=== PATIENT | female | born 1950 | race Two or more races ===

== ENCOUNTER 2019-04-22 15:52 | Inpatient (IN) | payer MEDICARE, OTHER ==
[~2019-04-22] VITALS: Ht 149.9 cm; Wt 57.6 kg
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
[2019-04-22] MEDS ORDERED: ACETAMINOPHEN 325 MG TABLET ONE (16:24)
[2019-04-22] MEDS ORDERED: ACETAMINOPHEN 325 MG TABLET PO ONE (16:30)
--- NOTE | 2019-04-22 16:39 | NUR ---
PT TAKEN TO CT
--- NOTE | 2019-04-22 17:06 | NUR ---
RACHAEL REGLA #[id number] AT BEDSIDE
--- NOTE | 2019-04-22 17:16 | NUR ---
PT BACK FROM CT
[2019-04-22] MEDS ORDERED: RIVA10TA PO (18:50)
[2019-04-22] MEDS ORDERED: AMIO200T4 PO (18:50)
[2019-04-22] MEDS ORDERED: FURO20TA4 PO (18:50)
[2019-04-22] MEDS ORDERED: ATOR40TA PO (18:50)
[2019-04-22] MEDS ORDERED: POTA10CA43 PO (18:50)
[2019-04-22] MEDS ORDERED: HYDROCODONE/APAP 5/325MG 1 EACH TABLET PO ONE (19:00)
[2019-04-22] MEDS ORDERED: HYDROCODONE/APAP 5/325MG 1 EACH TABLET ONE (19:04)
[2019-04-22 19:20] LABS: BASOPHILS # (AUTO) 0.1 /CMM (0.0-0.2); BASOPHILS % (AUTO) 0.9 % (0.0-2.0); EOSINOPHILS % (AUTO) 2.1 % (0.0-6.0); HEMATOCRIT 35 % (33-45); HEMOGLOBIN 11.9 g/dL (11.5-14.8); LYMPHOCYTES # (AUTO) 0.5 /CMM (0.8-4.8); LYMPHOCYTES % (AUTO) 9.4 % (20.0-44.0); MEAN CORPUSCULAR HGB CONC 34 g/dl (31.0-36.0); MEAN CORPUSCULAR VOLUME 104 fL (82-100); MONOCYTES # (AUTO) 0.4 /CMM (0.1-1.30); NEUTROPHILS # (AUTO) 4.5 /CMM (1.8-8.9); NEUTROPHILS % (AUTO) 80.6 % (43.0-81.0); PLATELET COUNT (AUTO) 138 /CMM (150-450); RED BLOOD CELL COUNT(AUTO) 3.36 MIL/uL (4.0-5.2); WHITE BLOOD COUNT (AUTO) 5.6 K/uL (4.3-11.0)
--- NOTE | 2019-04-22 19:24 | NUR ---
an 18g PIV line started on lac w/ good blood draw. blood drawn and sent to the lab
[2019-04-22 19:27] LABS: CALCIUM, SERUM 9.1 mg/dL (8.5-10.1); CREATININE 0.8 mg/dL (0.6-1.3); POTASSIUM 3.8 mmol/L (3.5-5.1)
--- NOTE | 2019-04-22 20:23 | NUR ---
Dana garcia in ED - 04/22/19 at 2023 by DIANNE PER PT'S MOM SHE IS NOT TAKINGANY MEDICATION AT HOME
[2019-04-22] MEDS ORDERED: MORPHINE SULFATE INJ 2 MG/ML DISP.SYRIN IV ONE (20:30)
[2019-04-22] MEDS ORDERED: MORPHINE SULFATE INJ 2 MG/ML DISP.SYRIN ONE (20:32)
--- NOTE | 2019-04-22 22:16 | NUR ---
repoert given to miguel on third floor
[2019-04-22 22:25] VITALS: BP 110/56
--- NOTE | 2019-04-22 22:33 | NUR ---
pt was transferred to the third floor in stable condition.
--- NOTE | 2019-04-22 22:45 | NUR ---
RN ADMITTING NOTES RECEIVED REPORT FROM ASPHALT TAMPER KHRIS. Pt ARRIVED TO THE FLOOR VIA [facility]. STAFF MEMBERS HELPED SAFELY TRANSFER THE Pt TO THE ROOM BED. Pt IS A/OX4, VERBAL, [place]ALLIS[place] SPEAKING BUT ALSO UNDERSTANDS MALIAN WELL. NO S/S OF ACUTE DISTRESS OR SOB NOTED. Pt ONLY C/O PAIN W/ MOVEMENT. IV ACCESS ON LAC #18G. SLING ON RT ARM. WAITING FOR ADMITTING ORDERS FROM DR. PATEL. SAFETY MEASURES IN PLACE. BED LOW, LOCKED, HOB ELEVATED, SIDE RAILS UP, CALL LIGHT AND BEDSIDE TABLE WITHIN REACH. WILL CONTINUE TO MONITOR Pt's CONDITION AND SAFETY THROUGHOUT THE NIGHT.
[2019-04-22] MEDS ORDERED: MAGNESIUM HYDROXIDE 30 ML UDC PO PRN (23:30)
[2019-04-22] MEDS ORDERED: ZOLPIDEM TARTRATE 5 MG TABLET PO PRN (23:30)
[2019-04-22] MEDS ORDERED: ACETAMINOPHEN 325 MG TABLET PO PRN (23:30)
[2019-04-22] MEDS ORDERED: HYDROCODONE/APAP 5/325MG 1 EACH TABLET PO PRN (23:30)
[2019-04-22] MEDS ORDERED: MAG HYDROX/AL HYDROX/SIMETH 30 ML UDC PO PRN (23:30)
[2019-04-22] MEDS ORDERED: Z GUARD REMEDY 2 OZ OINT TP PRN (23:30)
[2019-04-23] MEDS: MORPHINE SULFATE INJ 2 MG/ML DISP.SYRIN IV PRN ×4 (06:02→20:04)
--- NOTE | 2019-04-23 06:41 | NUR ---
RN CLOSING NOTES NO SIGNIFICANT CHANGES IN Pt's CONDITION. Pt REMAINS STABLE PER BASELINE. NO S/S OF ACUTE DISTRESS OR SOB NOTED DURING THE SHIFT. ALL NEEDS MET AND ATTENDED TO. PAIN MEDS GIVEN WHEN DUE. SAFETY MEASURES IN PLACE. BED LOW, LOCKED, HOB ELEVATED, SIDE RAILS UP, CALL LIGHT AND BEDSIDE TABLE WITHIN REACH. WILL ENDORSE TO DAYSHIFT RN FOR Pt's RAFAEL.
[2019-04-23 06:42] LABS: EOSINOPHILS % (AUTO) 2.8 % (0.0-6.0); HEMATOCRIT 33 % (33-45); HEMOGLOBIN 11.3 g/dL (11.5-14.8); LYMPHOCYTES # (AUTO) 0.6 /CMM (0.8-4.8); LYMPHOCYTES % (AUTO) 14.4 % (20.0-44.0); MEAN CORPUSCULAR HGB CONC 34 g/dl (31.0-36.0); MEAN CORPUSCULAR VOLUME 104 fL (82-100); MONOCYTES # (AUTO) 0.3 /CMM (0.1-1.30); MONOCYTES % (AUTO) 8.1 % (2.0-12.0); NEUTROPHILS # (AUTO) 3.1 /CMM (1.8-8.9); NEUTROPHILS % (AUTO) 73.7 % (43.0-81.0); PLATELET COUNT (AUTO) 116 /CMM (150-450); RED BLOOD CELL COUNT(AUTO) 3.19 MIL/uL (4.0-5.2); WHITE BLOOD COUNT (AUTO) 4.2 K/uL (4.3-11.0)
[2019-04-23 07:39] LABS: CALCIUM, SERUM 8.9 mg/dL (8.5-10.1); CREATININE 0.7 mg/dL (0.6-1.3); PHOSPHORUS 4.4 mg/dL (2.5-4.9); POTASSIUM 3.9 mmol/L (3.5-5.1)
[2019-04-23 08:00] VITALS: BP 103/56
--- NOTE | 2019-04-23 08:00 | NUR ---
MS RN AM NOTES RECEIVED Pt A/OX4, VERBAL, [place] ISLANDER SPEAKING BUT ALSO UNDERSTANDS INDONESIAN WELL. NO S/S OF ACUTE DISTRESS OR SOB NOTED. Pt ONLY C/O PAIN W/ MOVEMENT. PAIN MGT PROVIDED WITH MSO4 IV AND ZOFRAN PRN .IV ACCESS ON LAC #18G. SLING ON RT ARM. WAITING FOR ADMITTING ORDERS FROM DR. PATEL. SAFETY MEASURES IN PLACE. BED LOW, LOCKED, HOB ELEVATED, SIDE RAILS UP, CALL LIGHT AND BEDSIDE TABLE WITHIN REACH. WILL CONTINUE TO MONITOR Pt's CONDITION AND SAFETY
[2019-04-23 08:52] VITALS: BP 103/56
[2019-04-23 09:07] LABS: THYROID STIMULATING HORMONE 4.216 uIU/mL (0.358-3.74)
[2019-04-23] MEDS: ONDANSETRON HCL/PF 4 MG/2 ML VIAL IVP PRN ×3 (09:29→20:14)
[2019-04-23] MEDS: PANTOPRAZOLE 40 MG TABLET.DR PO SCH (09:29)
[2019-04-23 16:13] VITALS: BP 99/59
--- NOTE | 2019-04-23 18:00 | NUR ---
PT SLEEPING IN BED COMFORTABLY DENYING ANY PAIN OR DISTRESS. CALL LIGHT PLACED WITHIN REACH.
--- NOTE | 2019-04-23 19:50 | NUR ---
RN OPENING NOTES RECEIVED REPORT FROM DANIEL RN, ROLAND Nieto FOUND Pt AWAKE, RESTING IN BED. SISTER VISITING AT BEDSIDE. Pt IS A/OX4, GREEK SPEAKING, UNDERSTANDS [place]QI. NO S/S OF ACUTE DISTRESS OR SOB NOTED. Pt IS C/O PAIN, WILL ADMINISTER PAIN MED WHEN DUE. IV ACCESS LAC #18G, SL. SAFETY MEASURES IN PLACE. BED LOW, LOCKED, HOB ELEVATED, SIDE RAILS UP, CALL LIGHT AND BEDSIDE TABLE WITHIN REACH. BED ALARM ON. WILL CONTINUE TO MONITOR Pt's CONDITION AND SAFETY THROUGHOUT THE NIGHT.
[2019-04-23 20:00] VITALS: BP 99/59
[2019-04-23 20:12] VITALS: BP 92/52
[2019-04-24] MEDS: ONDANSETRON HCL/PF 4 MG/2 ML VIAL IVP PRN (04:18)
[2019-04-24] MEDS: MORPHINE SULFATE INJ 2 MG/ML DISP.SYRIN IV PRN ×3 (04:19→18:24)
--- NOTE | 2019-04-24 06:28 | NUR ---
RN CLOSING NOTES NO SIGNIFICANT CHANGES IN Pt's CONDITION. Pt REMAINS STABLE PER BASELINE. NO S/S OF ACUTE DISTRESS OR SOB NOTED DURING THE SHIFT. ALL NEEDS MET AND ATTENDED TO. SAFETY MEASURES IN PLACE. BED LOW, LOCKED, HOB ELEVATED, SIDE RAILS UP, CALL LIGHT AND BEDSIDE TABLE WITHIN REACH. WILL ENDORSE TO DAYSHIFT RN FOR Pt's RAFAEL.
--- NOTE | 2019-04-24 07:26 | NUR ---
RN MS OPENING NOTES Patient received on room air, no sob noted, a/o x4 and is comfortable at this time, patient denies pain. Slight difficulty with hearing. Sling is being used by patient on her right arm at this time. L ac 18 gauge SL. Bed at the lowest setting, call light within reach, side rails up x2.
[2019-04-24] MEDS: PANTOPRAZOLE 40 MG TABLET.DR PO SCH (07:55)
[2019-04-24 08:26] VITALS: BP 104/60
[2019-04-24 16:17] VITALS: BP 98/57
--- NOTE | 2019-04-24 18:33 | NUR ---
RN CLOSING NOTES Patient signed discharge papers at this time and is awaiting ambulance for transport. [facility] wants the AC 18 line to remain intact. Patient remains a/o x4 and wanted pain medications before they pick her up. Patients bed at the lowest setting, call light within reach, side rails up x2.
--- NOTE | 2019-04-24 19:23 | NUR ---
RN NOTES patient taken by ambulance at this time.
== END 2019-04-24 19:30 | DRG 543 ==
LOC: ER 15:55 → MED 21:34
PROVIDERS: ADMIT Student in an Organized Health Care Education/Training Program; ATTEND Nurse Practitioner Acute Care
DX: M80.821A Other osteoporosis with current pathological fracture, right humerus, initial encounter for fracture (principal); D68.69 Other thrombophilia; M80.851A Other osteoporosis with current pathological fracture, right femur, initial encounter for fracture; V01.00XA Pedestrian on foot injured in collision with pedal cycle in nontraffic accident, initial encounter; I10 Essential (primary) hypertension; E78.5 Hyperlipidemia, unspecified; D69.6 Thrombocytopenia, unspecified; Z79.01 Long term (current) use of anticoagulants; Z95.2 Presence of prosthetic heart valve; Y93.9 Activity, unspecified; Y92.480 Sidewalk as the place of occurrence of the external cause
CPT/HCPCS: 36415; 70450-TC; 71045-TC; 73050-TC; 73060-TC; 73502; 73564-TC; 80048-TC; 80061-TC; 83735-TC; 84100-TC; 84436-TC; 84443-TC; 85025-TC; 87081-TC; 93307-TC; 97110-TC; 97112-TC; 97530-TC; G0378; J2270; J2405